=== PATIENT | female | born 1960 | race Caucasian/White ===

== ENCOUNTER 2022-07-19 06:37 | Day surgery (SDC) | payer OTHER, SELFPAY ==
[2022-07-15 13:49] VITALS: BMI 24.4
[2022-07-19 06:45] VITALS: BMI 24.4
[2022-07-19 07:02] VITALS: BP 109/69; PULSE 66; RESP 16; TEMP 36.6; O2SAT 98
[2022-07-19] MEDS: Lactated Ringers 1,000 ML 50 ML IVCONT (07:14)
--- NOTE | 2022-07-19 07:29 | MHC.SHP ---
Pre-Procedural Eval Section A Date of Service: 07/19/22 Section B Chief Complaint: screening Details of Present Illness: see H*P no changes Relevant Family History (Specify if Yes): No Relevant Social History: None Present Medications: see Short Stay Collaborative assessment Medical History: No relevant PMH History of Previous Operations: No relevant previous surgery Allergies: Allergies Allergy/AdvReac Type Severity Reaction Status Date / Time ibuprofen Allergy Mild Swelling Verified 07/19/22 06:57 Review of Systems Sugical H&P ROS: Negative: Constitution, Cardiovascular, Respiratory, Neurological, Psychiatric, Hem-Onc, Allergic/Immunologic, Gastrointestinal, Genitourinary, Musculoskeletal, Integumentary, Endocrine and Eyes/Ears/Nose/Throat Exam Surgical H&P Exam: Normal: HEENT, Normal: Heart, Normal: Lungs, Normal: Extremities, Normal: Abdomen, Normal: Skin and Normal: Neurological Plan Diagnosis/Plan: Unchanged I have reviewed the history and physical and performed a pertinent physical examination on my patient. No changes have occurred unless specified.
--- NOTE | 2022-07-19 08:01 | P.CONAN_ITS ---
HPI - Anesthesia Eval Consult details Narrative: Colon surveillance [facility] Past Medical History Medical History (Updated 07/15/22 @ 13:49 by Yasmeen Lucio RN) Hypothyroid Family History Family history of problems with anesthesia: No Surgical History Surgical History (Updated 07/15/22 @ 13:53 by Yasmeen Lucio RN) H/O colonoscopy History of hysteroscopy Hx of breast biopsy History of Problems with Anesthesia: No Social History Social History Patient Tobacco Use Status: Never used Tobacco Use of substances other than those prescribed or required for medical reasons: No Are you DNR?: No Advance Directives: No Advance Directives Information Provided: Yes Meds Allergies Allergy/AdvReac Type Severity Reaction Status Date / Time ibuprofen Allergy Mild Swelling Verified 07/19/22 06:57 Home Medications Medication Instructions Recorded Confirmed Last Taken Type Vitamin C 07/15/22 Unknown History folic acid 07/15/22 Unknown History levothyroxine 25 mcg PO DAILY 07/15/22 07/19/22 Unknown History turmeric 07/15/22 Unknown History zinc 07/15/22 Unknown History Exam Exam Date and Time: July 19, 2022 0801 Height,Weight and Vital Signs: Height 5 ft 3 in Weight 62.596 kg Last Vital Signs Temp 97.9 F 07/19/22 07:02 Pulse 66 07/19/22 07:02 Resp 16 07/19/22 07:02 BP 109/69 07/19/22 07:02 Pulse Ox 98 07/19/22 07:02 O2 Del Method 07/19/22 07:02 Airway Mallampati Class: II TM Dist: >3cm Neck ROM: Full Loose/Missing/Broken Teeth: No Heart: [id number] Lungs: cta b/l Assessment and Plan Assessment Anesthesia Assessment: Anesthesia Plan Discussed and Chart Reviewed Final Anesthetic Review Family History of Problems with Anesthesia: No History of Problems with Anesthesia: No NPO: Yes ASA Class: II Final Preanesthetic Review: No Changes in Pt Med Stat, Meds/Allgs Chart Reviewed, Consent Obtained/Reviewed and Anes Risks/Benef Reviewed Patient Risk: Intermediate Procedure Risk: Low Assessment/Block/Sedation in SS: Assess/Block/Sedation-SS Anesthetic Plan Anesthetic Plan: MAC: and Agree w/ Assess. and Plan Disposition: Standard PACU
[2022-07-19 08:05] VITALS: BP 83/44; PULSE 60; RESP 16; TEMP 36.4; O2SAT 97
--- NOTE | 2022-07-19 08:10 | P.BOP_ITS ---
Brief Operative Note Date of Service: 07/19/22 Pre-op diagnosis: screening Post-op diagnosis: same Surgeon: Elvis Figueredo Anesthesia: MAC Was an Smoking Pipe Coater used for this Procedure?: No Estimated blood loss (mL): 0 Pathology: none sent Condition: stable Disposition: PACU
[2022-07-19 08:20] VITALS: BP 100/62; PULSE 68; RESP 16; TEMP 36.4; O2SAT 100
--- NOTE | 2022-07-19 23:11 | OP_ITS ---
SURGEON: Elvis Figueredo MD INDICATIONS: Colon cancer screening. PREOPERATIVE DIAGNOSIS: POSTOPERATIVE DIAGNOSIS: PROCEDURE PERFORMED: Colonoscopy to the terminal ileum. ESTIMATED BLOOD LOSS: COMPLICATIONS: ANESTHESIA: Monitored anesthesia care. ASSISTANTS: SPECIMENS: DESCRIPTION OF PROCEDURE: DATE: 07/19/22 History and physical performed. The risks and benefits of the procedure were explained to the patient. Informed consent was obtained. The patient was placed in left lateral decubitus position. A digital rectal exam was performed and was found to be normal. The Olympus pediatric videocolonoscope was introduced into the rectum and advanced to the cecum without difficulty. The cecum was identified by transillumination, palpation, identification of the ileocecal valve. Examination was performed. The scope was removed. She tolerated the procedure well and was taken to recovery room in stable condition. FINDINGS: The terminal ileum was normal. The visualized colonic mucosa was normal. The quality of the prep was excellent. No polyps were identified. Retroflexed examination was normal. IMPRESSION: Normal colonoscopy. RECOMMENDATIONS: 1. Follow up as needed. 2. Repeat colonoscopy is recommended in 10 years for average risk individuals. MD PATRICIO Mckenzie/SIMONE / [id number] MTDD
== END 2022-07-19 08:47 | disposition home or self-care (01) ==
PROVIDERS: PCP Nurse Practitioner Adult Health; Visit Provider Internal Medicine Gastroenterology
PROC: 0DJD8ZZ Inspection of Lower Intestinal Tract, Via Natural or Artificial Opening Endoscopic (ICD-10-PCS; CPT 45378; principal; 2022-07-19 07:30)
DX: Z12.11 Encounter for screening for malignant neoplasm of colon (principal); E03.9 Hypothyroidism, unspecified; Z79.899 Other long term (current) drug therapy; Z88.8 Allergy status to other drugs, medicaments and biological substances
CPT/HCPCS: 45378